=== PATIENT | male | born 1950 | race Caucasian/White ===

== ENCOUNTER 2024-01-08 00:43 | Inpatient (IN) | payer MEDICARE, SELFPAY ==
[2024-01-08] VITALS (17 sets, daily range): BP systolic 107–159; BP diastolic 57–102; PULSE 68–93; RESP 14–25; TEMP 36.6–37.1; O2SAT 97–99; BMI 25.9; BMI 25.4
[2024-01-08 01:22] LABS: Absolute Lymphocyte Count 0.99 X10^3/uL (0.83-4.51); Absolute Neutrophil Count 2.9 X10^3/uL (2.0-7.7); Basophil# 0.02 X10^3/uL; Basophil% 0.4 % (0-1); Eosinophil# 0.06 X10^3/uL; Eosinophils% 1.3 % (0-5); Hematocrit 39.2 % (40-54); Hemoglobin 13.7 g/dL (13.0-16.5); Lymphocyte # 0.99 X10^3/ul (0.83-4.51); Lymphocyte % 21.2 % (19-41); Mean Corp Hgb Conc 34.9 g/dL (32-36); Mean Corpuscular Hgb 34.5 pg (27.0-32.0); Mean Corpuscular Volume 98.7 fL (80-94); Mean Platelet Vol. 10.4 fl (6.2-12.0); Monocyte# 0.63 X10^3/uL; Monocyte% 13.5 % (0-10); NRBC Flagged by Analyzer 0 % (0-5); Neutrophil # 2.92 X10^3/uL (2.7-7.7); Neutrophil % 62.5 % (47-70); POSITIVE COUNT YES; Platelet Count 74 K/mm3 (150-450); RBC Distribution Width CV 12.2 % (11.6-14.6); RBC Distribution Width SD 44.9 fl (35.1-43.9); Red Blood Count 3.97 M/mm3 (4.6-6.2); White Blood Count 4.7 K/mm3 (4.4-11.0)
[2024-01-08 01:36] LABS: Alcohol, Blood (Medical)-Serum < 3.0 mg/dL
[2024-01-08 01:43] LABS: International Normalized Ratio 1.2; Prothrombin Time (Protime)PT. 14.7 SECONDS (11.7-14.9)
[2024-01-08 01:55] LABS: AST(SGOT) 101 U/L (15-37); Alanine Aminotransfer ALT/SGPT 81 U/L (16-61); Albumin, Serum 3.9 g/dL (3.2-5.0); Alkaline Phosphatase 70 U/L (45-117); Anion Gap 13 (5-15); BUN 15 mg/dL (7-18); BUN/Creat Ratio 14.2 RATIO (10-20); Bilirubin, Direct 0.79 mg/dL (0.00-0.30); Calcium,Total 9.4 mg/dL (8.5-10.1); Chloride 93 mmol/L (98-107); Creatinine, Serum 1.06 mg/dL (0.70-1.30); EST Glomerular Filtration Rate 73 mL/min (>60); Est Glom Filt Rate - Afr Amer 88 mL/min (>60); Estimated Creatinine Clearance 62.99 ml/min; Globulin 4.2 g/dL (2.2-4.2); Glucose 137 mg/dL (74-106); Magnesium 0.8 mg/dL (1.6-2.6); Potassium 3.3 mmol/L (3.5-5.1); Protein, Total 8.1 g/dL (6.4-8.2); Sodium Level 133 mmol/L (136-145); Troponin-I HS 7 pg/mL (3.0-78.0)
[2024-01-08 02:05] LABS: Differential Indicated SCAN CRITERIA MET
[2024-01-08 02:11] LABS: Color, Urine Amber (Yellow); Glucose, Dipstick Normal (Normal); Ketone-Dipstick 5 mg/dl (Negative); Leukocyte Esterase-Dipstick 25 /ul (Negative); Nitrite-Dipstick Negative (Negative); Occult Blood-Urine 50 /ul (Negative); Protein-Dipstick 100 mg/dl (Negative); Urine Clarity Clear (Clear); Urine Urobilinogen 8 mg/dl (Normal)
[2024-01-08] MEDS: Magnesium Sulfate 4gm/100mL 4 GM/100 ML IV.SOLN. IV (02:48)
[2024-01-08 02:55] LABS: Differential Comment SCANNED; Platelet Estimate MOD DEC (ADEQ); Red Cell Morphology NORM C+C NORMAL (NORM C&C)
[2024-01-08 02:59] LABS: Bacteria RARE /hpf (None Seen); Mucous, Urine 1+ /hpf (<or=2+); Red Blood Cells-Urine 5-10 SEEN /hpf (0-5); Squamous Epithelial Cells - UA 0-5 SEEN /hpf (0-5); Urine Bilirubin Dipstick 1 mg/dL (Negative); White Blood Cells 5-10 SEEN /hpf (0-5)
[2024-01-08 03:20] LABS: Amphetamine Urine VISTA NEGATIVE (<1000 ng/mL); Barbiturate Urine VISTA NEGATIVE (< 200 ng/mL); Benzodiazepine Urine VISTA NEGATIVE (< 200 ng/mL); Cocaine Urine VISTA NEGATIVE (< 300 ng/mL); Ecstacy Urine VISTA NEGATIVE (< 500 ng/mL); Methadone Urine VISTA NEGATIVE (< 300 ng/mL); PCP Urine VISTA NEGATIVE (< 25 ng/mL); THC Urine VISTA NEGATIVE (< 50 ng/mL); Vista UDS pH Range 7
[2024-01-08 07:40] LABS: Phosphorus 2.3 mg/dL (2.5-4.9)
[2024-01-08] MEDS: Potassium Phosphate 21 MM in 0.9% Normal Saline (250mL Bag) 250 ML 84 MM IV (10:20)
[2024-01-08] MEDS: LORazepam 2 MG/ML Syringe IV ×2 (13:26→18:04)
[2024-01-08] MEDS: Folic Acid 1 MG Tablet PO (17:18)
[2024-01-08] MEDS: Thiamine Hydrochloride 100 MG Tablet PO (17:18)
[2024-01-08] MEDS: Ferrous Sulfate 325 MG Tablet PO (17:19)
[2024-01-08] MEDS: 0.9% Saline Lock 10 ML Syringe IV ×2 (18:04→23:32)
[2024-01-09] VITALS (7 sets, daily range): BP systolic 118–134; BP diastolic 75–87; PULSE 68–95; RESP 12–18; TEMP 36.1–37.2; O2SAT 96–99
[2024-01-09 06:10] LABS: Absolute Lymphocyte Count 1.18 X10^3/uL (0.83-4.51); Absolute Neutrophil Count 2.1 X10^3/uL (2.0-7.7); Basophil# 0.02 X10^3/uL; Basophil% 0.5 % (0-1); Eosinophil# 0.08 X10^3/uL; Eosinophils% 1.9 % (0-5); Hematocrit 37.4 % (40-54); Hemoglobin 12.9 g/dL (13.0-16.5); Lymphocyte # 1.18 X10^3/ul (0.83-4.51); Lymphocyte % 28.3 % (19-41); Mean Corp Hgb Conc 34.5 g/dL (32-36); Mean Corpuscular Hgb 34.8 pg (27.0-32.0); Mean Corpuscular Volume 100.8 fL (80-94); Mean Platelet Vol. 11.3 fl (6.2-12.0); Monocyte# 0.72 X10^3/uL; Monocyte% 17.3 % (0-10); NRBC Flagged by Analyzer 0 % (0-5); Neutrophil # 2.14 X10^3/uL (2.7-7.7); Neutrophil % 51.3 % (47-70); POSITIVE COUNT YES; Platelet Count 79 K/mm3 (150-450); RBC Distribution Width CV 12.4 % (11.6-14.6); RBC Distribution Width SD 46.4 fl (35.1-43.9); Red Blood Count 3.71 M/mm3 (4.6-6.2); White Blood Count 4.2 K/mm3 (4.4-11.0)
[2024-01-09 07:32] LABS: ALB/GLOB Ratio 0.9 RATIO (0.9-2.4); AST(SGOT) 85 U/L (15-37); Alanine Aminotransfer ALT/SGPT 77 U/L (16-61); Albumin, Serum 3.5 g/dL (3.2-5.0); Alkaline Phosphatase 63 U/L (45-117); Anion Gap 8 (5-15); BUN 17 mg/dL (7-18); BUN/Creat Ratio 18.3 RATIO (10-20); Calcium,Total 8.6 mg/dL (8.5-10.1); Chloride 101 mmol/L (98-107); Creatinine, Serum 0.93 mg/dL (0.70-1.30); EST Glomerular Filtration Rate 85 mL/min (>60); Est Glom Filt Rate - Afr Amer 103 mL/min (>60); Globulin 3.9 g/dL (2.2-4.2); Glucose 108 mg/dL (74-106); Magnesium 1.6 mg/dL (1.6-2.6); Phosphorus 4.4 mg/dL (2.5-4.9); Potassium 3.7 mmol/L (3.5-5.1); Protein, Total 7.4 g/dL (6.4-8.2); Sodium Level 138 mmol/L (136-145)
[2024-01-09] MEDS: Thiamine Hydrochloride 100 MG Tablet PO (10:09)
[2024-01-09] MEDS: Folic Acid 1 MG Tablet PO ×2 (10:09→17:45)
[2024-01-09] MEDS: Ferrous Sulfate 325 MG Tablet PO ×2 (10:15→17:45)
[2024-01-09] MEDS: Magnesium Sulfate 2 GM in Dextrose 5%-Water (100mL Bag) 100 ML IV (14:57)
[2024-01-10 07:56] VITALS: BP 121/78; PULSE 76; RESP 17; TEMP 36.7; O2SAT 97
[2024-01-10] MEDS: Folic Acid 1 MG Tablet PO ×2 (09:25→16:48)
[2024-01-10] MEDS: Thiamine Hydrochloride 100 MG Tablet PO (09:25)
[2024-01-10] MEDS: Ferrous Sulfate 325 MG Tablet PO ×2 (09:25→16:48)
[2024-01-10 14:32] VITALS: BP 107/68; PULSE 75; RESP 17; TEMP 36.9; O2SAT 95
[2024-01-10 20:03] VITALS: BP 137/79; PULSE 74; RESP 16; TEMP 37; O2SAT 98
[2024-01-11 02:00] VITALS: BP 142/79; PULSE 67; RESP 16; TEMP 37.1; O2SAT 98
[2024-01-11 07:57] VITALS: BP 144/86; PULSE 75; RESP 17; TEMP 36.5; O2SAT 97
[2024-01-11] MEDS: Folic Acid 1 MG Tablet PO (08:06)
[2024-01-11] MEDS: Ferrous Sulfate 325 MG Tablet PO (08:06)
[2024-01-11] MEDS: Thiamine Hydrochloride 100 MG Tablet PO (08:06)
[2024-01-11 10:47] VITALS: BP 139/78; PULSE 73; RESP 17; TEMP 36.6; O2SAT 99
== END 2024-01-11 11:47 | disposition home or self-care (01) | DRG 897 ==
LOC: ED 06:58 → MS3 07:23
PROVIDERS: Admitting Provider Family Medicine; Emergency Provider Emergency Medicine; Visit Provider Family Medicine
DX: F10.139 Alcohol abuse with withdrawal, unspecified (principal); D50.9 Iron deficiency anemia, unspecified; E83.42 Hypomagnesemia; Z87.891 Personal history of nicotine dependence; Y90.0 Blood alcohol level of less than 20 mg/100 ml
CPT/HCPCS: 36415; 70450; 71045; 80048; 80053; 80076; 80307; 81001; 82077; 83735; 84100; 84443; 84484; 85025; 85610; 85730; 93005; 97116; 97162; 97166; 97530; 97535; 99284; J7050; A4216